=== PATIENT | female | born 1930 | race Caucasian/White ===

== ENCOUNTER 2018-02-26 10:32 | Emergency (ER) | payer OTHER ==
[~2018-02-26] VITALS: Ht 154.9 cm; Wt 63.0 kg
[~2018-02-26 10:32] MED LIST: ACYCLOVIR 400400 MG PO; ADVAIR HFA 230M12 GM INH; ALIGN4 MG PO; ANASTROZOLE1 MG PO; ASPIR 8181 M1 PO; B12INJ IM; BACTROBAN CREAM30 G1 TOP; CARVEDILOL12.5 MG PO; ECOTRIN325 MG PO; FISH OIL 1,001000 M2 PO; IBUPROFEN 200200 M1 PO; LEVOTHYROXIN0.025 MG PO; LEVOTHYROXIN0.075 MG PO; LEVOTHYROXIN0.088 MG PO; LIDOCAINE 22 %/30 GM TOP; NEXIUM40 MG PO; NORCO 5-325 TA1 EACH PO; NORVASC5 MG PO; PERCOCET 7.5-31 EACH PO; PERCOCET PO; PREDNISONE 10 M10 MG; VANCOMYCIN100 MG/M1 PO; VITAMIN B-12500 MCG PO; VITAMIN D31000 UNI2 PO
[2018-02-26 11:16] LABS: ABSOLUTE BASOPHILS 0.1 thou/uL (0.0-0.2); ABSOLUTE EOSINOPHILS 0.4 thou/uL (0.0-0.7); ABSOLUTE LYMPHOCYTES 2.6 thou/uL (0.8-5.3); ABSOLUTE MONOCYTES 1.1 thou/uL (0.0-1.2); BASOPHILS 1.1 %; EOSINOPHILS 4.7 %; HEMATOCRIT 39.1 % (37.0-47.0); HEMOGLOBIN 13.1 gm/dL (12.0-15.0); LYMPHOCYTES 31.9 %; MCH 29.6 pg (26.0-34.0); MCHC 33.5 g/dL (28.0-37.0); MCV 88.4 fL (80.0-100.0); MONOCYTES 13.5 %; MPV 8.3 fl. (7.2-11.1); NUCLEATED RBCS 0 /100WBC; PLATELET COUNT* 147 thou/uL (150-400); POLYS 48.8 %; RBC 4.43 mil/uL (4.20-5.00); RDW-CV 14.4 % (10.5-14.5); WBC 8.1 thou/uL (4.0-11.0)
[2018-02-26 11:32] LABS: ANION GAP 6 mmol/L (7-16); BUN 15 mg/dL (7-18); CALCIUM 8.9 mg/dL (8.5-10.1); CHLORIDE 105 mmol/L (98-107); CO2 28 mmol/L (21-32); CREATININE 1.1 mg/dL (0.6-1.3); GLUCOSE 115 mg/dL (70-99); POTASSIUM 4.3 mmol/L (3.5-5.1); SODIUM 139 mmol/L (136-145)
[2018-02-26 11:43] LABS: ALBUMIN 3.3 g/dL (3.4-5.0); ALKALINE PHOSPHATASE 102 U/L (46-116); NT-PRO BRAIN NAT PEPTIDE 279 pg/mL (<300); SGOT 48 U/L (15-37); SGPT 54 U/L (30-65); TOTAL BILIRUBIN 0.4 mg/dL (<0.1-1.0); TOTAL PROTEIN 7.3 g/dL (6.4-8.2); TROPONIN-I LEVEL <0.06 ng/mL (<0.06)
[2018-02-26 12:34] LABS: URINE BILIRUBIN NEGATIVE (Negative); URINE BLOOD NEGATIVE (Negative); URINE CLARITY CLEAR; URINE COLOR YELLOW; URINE GLUCOSE-RANDOM NEGATIVE (Negative); URINE KETONES NEGATIVE (Negative); URINE LEUKOCYTES-REFLEX NEGATIVE (Negative); URINE NITRITE-REFLEX NEGATIVE (Negative); URINE PROTEIN NEGATIVE (Negative); URINE SPECIFIC GRAVITY <= 1.005 (1.005-1.030); URINE UROBILINOGEN 0.2 E.U./dl (0.2-1.0)
[2018-02-26] MEDS ORDERED: PREDNISONE50 MG PO (13:37)
[2018-02-26] MEDS ORDERED: ZPAK PO (13:37)
[2018-02-26] MEDS ORDERED: VENTOLIN HFA 1818 GM INH (13:37)
[2018-02-26] MEDS ORDERED: ALBUTEROL2.5 MG/31 INH (13:37)
--- NOTE | 2018-02-26 13:56 | EKG ---
[place] [address] ELECTROCARDIOGRAM REPORT Name: QUINTON GROSS Room: [facility]#: [id number] Admission: 02/26/18 Attend Phys: Discharge: Date of : 31 Report #: [id number] THIS REPORT FOR: //name// [facility] ED Test Date: 2018-02-26 Test Time: 10:41:44 Pat Name: QUINTON GROSS Department: Room: Gender: F Supervisor Telephone Information: : 1930 Requested By: Colten Narayanan Order Number: [id number] MD: Ravi Rodriguez Measurements Intervals [place] Rate: 62 P: 5 VA: 214 QRS: 19 QRSD: 86 T: 57 QT: 432 QTc: 439 Interpretive Statements Sinus rhythm Borderline prolonged VA interval Compared to ECG 03/01/2015 20:42:27 No significant changes Electronically Signed On 02-26-2018 13:56:42 CDT by Ravi Rodriguez [email or web address] <ELECTRONICALLY SIGNED> By: Ravi Rodriguez MD, [facility] 02/26/18 1356 1041 1041 Ravi Rodriguez MD, FACC /EPI
[2018-02-26 14:00] VITALS: BP 157/61
== END 2018-02-26 14:05 | disposition home or self-care (01) ==
LOC: M.ERS 10:32
PROVIDERS: Emergency Medicine Emergency Medical Services
DX: J44.1 Chronic obstructive pulmonary disease with (acute) exacerbation (principal); I10 Essential (primary) hypertension; E03.9 Hypothyroidism, unspecified; Z88.5 Allergy status to narcotic agent; Z88.8 Allergy status to other drugs, medicaments and biological substances; Z90.49 Acquired absence of other specified parts of digestive tract; Z90.710 Acquired absence of both cervix and uterus

== ENCOUNTER 2019-08-31 12:25 | Inpatient (IN) | payer OTHER ==
[~2019-08-31] VITALS: Ht 154.9 cm; Wt 57.5 kg
[~2019-08-31 12:25] MED LIST changes: +ALBUTEROL2.5 MG/31 INH; -LEVOTHYROXIN0.088 MG PO; +PREDNISONE50 MG PO; +SYNTHROID88 MC1 PO; +VENTOLIN HFA 1818 GM INH; -VITAMIN D31000 UNI2 PO; +VITAMIN D3400 UNI2 PO; +ZPAK PO
[2019-08-31 12:52] VITALS: BP 110/54
[2019-08-31] MEDS ORDERED: ELIQUIS2.5 MG PO (12:59)
[2019-08-31 14:27] LABS: ABSOLUTE BASOPHILS 0.1 thou/uL (0.0-0.2); ABSOLUTE EOSINOPHILS 0.1 thou/uL (0.0-0.7); ABSOLUTE LYMPHOCYTES 1.7 thou/uL (0.8-5.3); ABSOLUTE MONOCYTES 0.7 thou/uL (0.0-1.2); ABSOLUTE NEUTROPHILS 5.3 thou/uL (1.6-8.1); BASOPHILS 0.7 %; EOSINOPHILS 0.9 %; HEMATOCRIT 27.8 % (37.0-47.0); HEMOGLOBIN 9.2 gm/dL (12.0-15.0); LYMPHOCYTES 21.2 %; MCH 32.9 pg (26.0-34.0); MCV 99.7 fL (80.0-100.0); MONOCYTES 8.9 %; MPV 9.3 fl. (7.2-11.1); NUCLEATED RBCS 0 /100WBC; PLATELET COUNT* 136 thou/uL (150-400); POLYS 68.3 %; RBC 2.79 mil/uL (4.20-5.00); RDW-CV 19.2 % (10.5-14.5); WBC 7.8 thou/uL (4.0-11.0)
[2019-08-31 14:31] LABS: CALCIUM 7.8 mg/dL (8.5-10.1); CREATININE 0.9 mg/dL (0.6-1.3); POTASSIUM 3.8 mmol/L (3.5-5.1)
[2019-08-31 14:42] LABS: ALBUMIN 2.5 g/dL (3.4-5.0); TOTAL BILIRUBIN 0.5 mg/dL (<0.1-1.0); TOTAL PROTEIN 5.9 g/dL (6.4-8.2)
[2019-08-31 16:27] LABS: URINE BILIRUBIN NEGATIVE (Negative); URINE BLOOD NEGATIVE (Negative); URINE CLARITY CLEAR; URINE COLOR YELLOW; URINE GLUCOSE-RANDOM NEGATIVE (Negative); URINE KETONES NEGATIVE (Negative); URINE LEUKOCYTES-REFLEX NEGATIVE (Negative); URINE NITRITE-REFLEX NEGATIVE (Negative); URINE PROTEIN NEGATIVE (Negative); URINE SPECIFIC GRAVITY 1.015 (1.005-1.030); URINE UROBILINOGEN 0.2 E.U./dl (0.2-1.0)
[2019-08-31 18:11] VITALS: BP 132/58
[2019-08-31 21:22] VITALS: BP 134/54
[2019-08-31 22:00] VITALS: BP 130/53
[2019-09-01 04:00] VITALS: BP 118/60
--- NOTE | 2019-09-01 04:13 | NUR ---
RECEIVED REPORT FROM EBEN BANKS AT 2099. PT ARRIVED TO UNIT AT 2114. AFIB ON DOUBLE BACKER THIS SHIFT. PT DENIES PAIN, VOICES NO CONCERNS THIS SHIFT. PT HOURLY ROUNDING COMPLETED. FALL PRECAUTIONS IN PLACE. Q2H REPOSITIONING COMPLETED. CALL LIGHT WITHIN REACH. STRICT I&0'S. [address]
[2019-09-01] MEDS ORDERED: DILTIAZEM ER180 MG PO (04:30)
[2019-09-01] MEDS ORDERED: KLOR-CON 10 ER10 MEQ PO (04:31)
[2019-09-01] MEDS ORDERED: FUROSEMIDE 20 M20 MG PO (04:31)
[2019-09-01] MEDS ORDERED: VENTOLIN HFA 1818 GM INH (04:32)
[2019-09-01] MEDS ORDERED: RAYOS5 MG PO (04:35)
[2019-09-01 05:55] LABS: ABSOLUTE LYMPHOCYTES 0.7 thou/uL (0.8-5.3); ABSOLUTE MONOCYTES 0.1 thou/uL (0.0-1.2); ABSOLUTE NEUTROPHILS 5.1 thou/uL (1.6-8.1); BASOPHILS 0.4 %; EOSINOPHILS 0.2 %; HEMATOCRIT 28.9 % (37.0-47.0); HEMOGLOBIN 9.6 gm/dL (12.0-15.0); LYMPHOCYTES 12.2 %; MCH 33.1 pg (26.0-34.0); MCHC 33.1 g/dL (28.0-37.0); MCV 99.9 fL (80.0-100.0); MONOCYTES 2.5 %; MPV 8.6 fl. (7.2-11.1); NUCLEATED RBCS 0 /100WBC; PLATELET COUNT* 107 thou/uL (150-400); POLYS 84.7 %; RBC 2.89 mil/uL (4.20-5.00); RDW-CV 18.7 % (10.5-14.5)
[2019-09-01 06:02] LABS: CALCIUM 8.4 mg/dL (8.5-10.1); CREATININE 1.1 mg/dL (0.6-1.3)
[2019-09-01 06:03] LABS: POTASSIUM 4.9 mmol/L (3.5-5.1)
[2019-09-01 08:20] VITALS: BP 115/47
--- NOTE | 2019-09-01 11:09 | NUR ---
VSS, ASSUMED CARE IN THE AM, ASSESSMENT PERFORMED AND CHARTED, FALL PRECAUTIONS IN PLACE AND CALL LIGHT IN REACH, PT IS A&O4 AND IS UP WITH ONE AND ON 2L NC, PT IS DENIES ANY PAIN, IS TRACING AFIB ON THE MONITOR, PT GOAL IS TO SIT UP IN CHAIR AND WALK IN ROOM, WILL FOLLOW WITH PLAN OF CARE.
[2019-09-01 12:00] VITALS: BP 101/38
[2019-09-01 16:00] VITALS: BP 112/43
[2019-09-01 20:00] VITALS: BP 118/45
[2019-09-02] VITALS (7 sets, daily range): BP systolic 110–123; BP diastolic 42–60
--- NOTE | 2019-09-02 04:08 | NUR ---
ASSUMED PT CARE AT APPROX 1930. PT IS AWAKE AND ORIENTED X4-FORGETFUL. PT IS TRACING AFIB-RATE CONTROLLED ON THE POUNCER. spO2- 88-89% ON ROOM AIR WHILE SLEEPING, PLACED PT ON 1L OF O2/NC- spO2 94%. VS OTHERWISE STABLE, NO RESPIRATORY DISTRESS NOTED. PT IS ABLE TO SLEEP MOST OF THE NIGHT. HIGH FALL PRECAUTIONS IN PLACE. CALL LIGHT WITHIN REACH. HOURLY ROUNDING DONE FOR SAFETY.
[2019-09-02 05:05] LABS: HEMATOCRIT 25.3 % (37.0-47.0); HEMOGLOBIN 8.5 gm/dL (12.0-15.0); MCHC 33.7 g/dL (28.0-37.0); MCV 98.2 fL (80.0-100.0); MPV 8.5 fl. (7.2-11.1); RBC 2.58 mil/uL (4.20-5.00); RDW-CV 17.8 % (10.5-14.5); WBC 5.6 thou/uL (4.0-11.0)
[2019-09-02 05:34] LABS: CALCIUM 7.9 mg/dL (8.5-10.1); CREATININE 1.4 mg/dL (0.6-1.3); POTASSIUM 3.7 mmol/L (3.5-5.1)
--- NOTE | 2019-09-02 10:25 | CON ---
[address] [address] CONSULTATION Name: QUINTON GROSS Room: [address] ADM IN M.R.#: [id number] Admission: 08/31/19 Attend Phys: Ilia Rasmussen Discharge: Date of : 31 Report #: [id number] THIS REPORT FOR: //name// CC: Ilia Whalen INDICATION: Atrial fibrillation with rapid ventricular response rate. HISTORY OF PRESENT ILLNESS: The patient is a very pleasant 89-year-old white female who was transferred from snf for complaints of increased dyspnea on exertion. The patient has a history of possible lung cancer per her report. She was treated recently at outside hospital for what she reports as a pneumonia. The patient does certainly have evidence of scarring and infiltrate in the right middle lobe, possibly with underlying tumor. In this setting, the patient has been noted to be in atrial fibrillation. She has been treated with a rate control plan with chronic anticoagulation. She is having no bleeding problems. She has been on a combination of diltiazem and carvedilol for rate control. She has a history of heart failure, which appears to be diastolic in nature. She does have some evidence of volume overload, although she denies orthopnea. She does have some chronic dyspnea. She denies chest pain. She is without other cardiac complaint at this time. PAST MEDICAL HISTORY: 1. Persistent atrial fibrillation. 2. Hypertension. 3. Diastolic heart failure. 4. Hypertensive heart disease. 5. Hypercoagulable state due to atrial fibrillation. 6. History of breast cancer remotely. 7. Possible lung cancer. 8. History of skin cancer on the right hand. 9. Hypothyroidism. 10. Remote appendectomy. 11. Cholecystectomy remotely. 12. Hysterectomy remotely. MEDICATIONS ON TRANSFER: Aspirin 81 mg daily, carvedilol 12.5 mg b.i.d., vitamin D3 1000 units daily, diltiazem 180 mg daily, Eliquis 2.5 mg b.i.d., furosemide 20 mg daily, potassium chloride 10 mEq daily, levothyroxine 88 mcg daily, Imodium p.r.n., omeprazole 20 mg daily, Ventolin inhaler every 4 hours p.r.n., vitamin B12 500 mcg orally daily and prednisone 10 mg daily. ALLERGIES: LEVAQUIN, LISINOPRIL, LOSARTAN, MORPHINE SULFATE, SULFA ANTIBIOTICS. SOCIAL HISTORY: The patient is a lifelong nonsmoker. [place] [address] CONSULTATION Name: QUINTON GROSS Room: [address]#: [id number] Admission: 08/31/19 Attend Phys: Iila Rasmussen Discharge: Date of : 31 Report #: [id number]. FAMILY HISTORY: Noncontributory. PHYSICAL EXAMINATION: VITAL SIGNS: Blood pressure 115/47, pulse is in the low. GENERAL: This is a very pleasant elderly female in no distress. Mood and affect appropriate. HEENT: Extraocular muscles intact. Mucous membranes are moist. NECK: Shows no jugular venous distention. There are no carotid bruits. CHEST: Reveals clear lung sears anteriorly. CARDIOVASCULAR: Reveals an irregularly irregular rhythm that is slightly tachycardic. I do not appreciate murmur or gallop. ABDOMEN: Reveals normal bowel sounds. The abdomen is soft and nontender. EXTREMITIES: Shows 1+ edema to the mid tibias bilaterally. SKIN: Dry. LABORATORY DATA: A 12-lead EKG shows atrial fibrillation with fairly controlled ventricular response rate. Labs are reviewed. Electrolytes within normal limits. BUN 19 and creatinine 1.1. Troponins are less than 0.06 on 3 separate occasions. NT-proBNP is mildly elevated at 4740. Chest x-ray shows perihilar infiltrate. There is possible atelectasis or infiltrate in the right middle lobe. IMPRESSION AND RECOMMENDATIONS: 1. Atrial fibrillation, which appears to be persistent. We will continue rate control. I am switching from amlodipine to diltiazem and continuing carvedilol at current doses. Could adjust these doses if need be for rate control. She is chronically anticoagulated with Eliquis and having no bleeding problems. 2. Hypercoagulable state due to atrial fibrillation. Continue Eliquis 2.5 mg twice daily. 3. Hypertension. Blood pressure adequately controlled on current cardiac regimen. 4. Hypertensive heart disease, presently stable. 5. Acute on chronic diastolic heart failure. We will continue with diuresis as has been started already. Agree to increasing oral dose to 40 mg daily and following. She has had an adequate diuresis with her IV Lasix boluses. 6. Possible lung cancer. Treatment per primary physician. 7. Pneumonitis, possible pneumonia. Antibiotics per primary physician. <ELECTRONICALLY SIGNED> By: Alex Day MD, FACC 09/02/19 1025 1005 1213Miclucy Day MD, FACC /nt
--- NOTE | 2019-09-02 12:00 | NUR ---
MET WITH PT AND SPOKE WITH LIO/JAYNE WHO IS DPOA. PT LIVE IN [place] APT AT THE [facility]. SHE HAS RECENTLY BEEN IN SNF AT [facility] BUT STATES WILL NOT RETURN. PT HAS NOT HAD HH. PT IS NORMALLY INDEPENDENT AND ACTIVE. WALKS TO THE DINING ROOM FOR MEALS AND CAN PREPARE A SIMPLE MEAL IN APT. SHE USES NO EQUIPMENT. PER , PLAN FOR DC WITH HH, POSSIBLY TOMORROW. DISCUSSED HH OPTIONS WITH JAYNE AND SHE CHOSE [facility]. CALLED AND FAXED INITIAL REF TO [facility] PT WILL ALSO NEED WALKER, WILL CHECK ON
--- NOTE | 2019-09-02 12:19 | EKG ---
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: : 1930 Requested By: Kori Lomeli Order Number: [id number] MD: Junior Jennings Measurements Intervals [place] Rate: 79 P: AL: QRS: 16 QRSD: 109 T: 98 QT: 369 QTc: 424 Interpretive Statements Atrial fibrillation Borderline repolarization abnormality Compared to ECG 02/26/2018 10:41:44 Sinus rhythm no longer present Electronically Signed On 09-02-2019 12:19:18 ASSOCIATE PROGRAMMER by Junior Jennings [email or web address] <ELECTRONICALLY SIGNED> By: Junior Jennings MD, [facility] 09/02/19 1219 1435 143 Junior Jennings MD, FAC /EPI
--- NOTE | 2019-09-02 13:02 | NUR ---
VSS, ASSUMED CARE IN THE AM, ASSESSMENT PERFORMED AND CHARTED, FALL PRECAUTIONS IN PLACE AND CALL LIGHT IN REACH, PT IS ON RA THIS AM, SHE IS UP WITH ONE AND WALKER, PT DENIES ANY PAIN THIS AM, PT IS TRACING AFIB ON THE MONITOR, PT HAS WALKED IN THE HALLS AND IS UP IN CHAIR, WILL FOLLOW WITH PLAN OF CARE.
--- NOTE | 2019-09-02 15:05 | 2DMMODE ---
[place] [address] 2 D/M-MODE ECHOCARDIOGRAM Name: QUINTON GROSS Room: [address] ADM IN .R.#: [id number] Admission: 08/31/19 Attend Phys: Ilia ordoñez Sa Discharge: Date of : 31 Date of Service: 09/02/19 1504 Report #: [id number] THIS REPORT FOR: //name// APPROVED REPORT Study performed: 09/02/2019 11:47:18 EXAM: Comprehensive 2D, Doppler, and color-flow Echocardiogram Patient Location: Bedside BSA: 1.54 HR: 85 bpm BP: 110/49 mmHg Other Information Study Quality: Fair Indications Atrial Fibrillation 2D Dimensions IVSd: 11.22 (7-11mm) LVOT Diam: 19.80 (18-24mm) LVDd: 29.52 mm PWd: 10.11 (7-11mm) Ascending Ao: 29.00 (22-36mm) LVDs: 23.25 (25-40mm) Aortic Root: 25.85 mm Volumes Left Atrial Volume (Systole) LA ESV Index: 26.50 mL/m2 Aortic Valve AoV Peak Andrei.: 0.78 m/s AO Peak Gr.: 2.45 mmHg LVOT Max P.43 mmHg AO Mean Gr.: 1.21 mmHg LVOT Mean P.76 mmHg LVOT Max V: 0.60 m/s AO V2 VTI: 12.94 cm LVOT Mean V: 0.40 m/s TERRENCE (VTI): 3.09 cm2 LVOT V1 VTI: 12.99 cm Mitral Valve E/A Ratio: 3.87 MV Decel. Time: 153.32 ms MV E Max Andrei.: 1.06 m/s MV PHT: 44.46 ms MVA (PHT): 4.95 [place] [address] 2 D/M-MODE ECHOCARDIOGRAM Name: QUINTON GROSS Room: [address] IN .R.#: [id number] Admission: 08/31/19 Attend Phys: Ilia ordoñez Sa Discharge: Date of : 31 Date of Service: 09/02/19 1504 Report #: [id number] TDI E/Lateral E': 9.64 E/Medial E': 17.67 Medial E' Andrei.: 0.06 m/s Lateral E' Andrei.: 0.11 m/s Pulmonary Valve PV Peak Andrei.: 0.77 m/s PV Peak Gr.: 2.35 mmHg Tricuspid Valve RAP Estimate: 5.00 mmHg TR Peak Gr.: 32.72 mmHg RVSP: 37.72 mmHg PA Pressure: 37.72 mmHg Left Ventricle The left ventricle is normal size. There is normal LV segmental wall motion. Mild concentric left ventricular hypertrophy. Left ventricular systolic function is normal. The left ventricular ejection fraction is within the normal range. LVEF is 60-65%. This study is not technically sufficient to allow evaluation of the LV diastolic function due to atrial fibrillation. Right Ventricle The right ventricle is normal size. The right ventricular systolic function is normal. Atria The left atrium size is normal. Right atrium is dilated. Aortic Valve The aortic valve is normal in structure. No aortic regurgitation is present. There is no aortic valvular stenosis. Mitral Valve The mitral valve is normal in structure. Mild mitral regurgitation. No evidence of mitral valve stenosis. Tricuspid Valve The tricuspid valve is normal in structure. Mild tricuspid regurgitation. Pulmonic Valve The pulmonary valve is normal in structure. Mild pulmonic regurgitation[place] [address] 2 D/M-MODE ECHOCARDIOGRAM Name: QUINTON GROSS Room: [address] IN [facility]#: [id number] Admission: 08/31/19 Attend Phys: Ilia ordoñez Sa Discharge: Date of : 31 Date of Service: 09/02/19 1504 Report #: [id number] The aortic root is normal in size. IVC is normal in size and collapses >50% with inspiration. Pericardium There is no pericardial effusion. <Conclusion> The left ventricle is normal size. Mild concentric left ventricular hypertrophy. Left ventricular systolic function is normal. The left ventricular ejection fraction is within the normal range. LVEF is 60-65%. This study is not technically sufficient to allow evaluation of the LV diastolic function due to atrial fibrillation. Mild mitral regurgitation. Mild tricuspid regurgitation. Mild pulmonic regurgitation. IVC is normal in size and collapses >50% with inspiration. <ELECTRONICALLY SIGNED> By: Alex Day MD, [facility] 09/02/19 1504 1504 1504 Alex Day MD, FACC /INF
[2019-09-03] VITALS (8 sets, daily range): BP systolic 108–129; BP diastolic 47–58
--- NOTE | 2019-09-03 04:59 | NUR ---
ASSUMED PT CARE AT APPROX 1930. PT IS AWAKE AND ORIENTED X4. VSS ON 1L OF O2/NC. ASSET MANAGER IN PLACE TRACING AFIB-RATE CONTROLLED. ASSESSMENT DONE AND CHARTED. PT IS ABLE TO SLEEP MOST OF THE NIGHT. CALL LIGHT WITHIN REACH. HIGH FALL PRECAUTIONS IN PLACE. HOURLY ROUNDING DONE FPR PT SAFETY.
[2019-09-03 06:08] LABS: CALCIUM 7.9 mg/dL (8.5-10.1); CREATININE 1.4 mg/dL (0.6-1.3); MAGNESIUM 1.4 mg/dL (1.8-2.4); POTASSIUM 3.4 mmol/L (3.5-5.1)
--- NOTE | 2019-09-03 07:11 | CON ---
[address] [address] CONSULTATION Name: QUINTON GROSS Room: [address] ADM IN M.R.#: [id number] Admission: 08/31/19 Attend Phys: Ilia Rasmussen Discharge: Date of : 31 Report #: [id number] THIS REPORT FOR: //name// CC: Ilia Kraft [facility] DATE OF SERVICE: 09/02/2019 INFECTIOUS DISEASE CONSULTATION ATTENDING PHYSICIAN: Ilia Kraft MD REASON FOR EVALUATION: Recommendations for antimicrobial therapy in the setting of what appears to be acute pneumonitis in the background of chronic lung disease, also perhaps some immunodeficiency. HISTORY OF PRESENT ILLNESS: Chart reviewed, the patient examined. This is an 89-year-old with known history of breast cancer, although more recently, has been diagnosed with a lung mass. Apparently, that has not been diagnosed as another primary or metastatic lesion. Had been undergoing radiation therapy and was given corticosteroids, specifically prednisone. She was apparently on a tapering dose, although there is some confusion. She was evaluated at other institution due to progressive dyspnea and weakness, the latter of which she has is her main complaint now. She was diagnosed with atrial fibrillation and congestive heart failure with a component of pneumonitis as well. She stayed several days, was treated with diuretics, antibiotics, which she describes as multiple. She was transitioned to the rehab unit, was found to have increasing fluid retention. This was eventually diuresed to some degree. She admits with weakness. At this point, she is on room air oxygen. She does have a cough that is mildly productive. It is not clear that she has had any fevers. Initial evaluation showed a normal white count and differential. Albumin of 2.5. Chest x-ray: Prominent bilateral perihilar mixed interstitial alveolar infiltrates, normal-sized heart. CT: There is question of possible mass. Urinalysis: Unremarkable. Blood cultures are sterile thus far. As a result, she was empirically started on antimicrobials with ceftriaxone, azithromycin as well as corticosteroids. She denies significant amount of pain. She is generally lucid. ALLERGIES: LISTED TO MORPHINE, CIPROFLOXACIN, WHICH CAUSES MUSCLE PAINS, METRONIDAZOLE, WHICH CAUSED HER URTICARIA, LEVAQUIN, WHICH CAUSES URTICARIA WELL. PAST MEDICAL HISTORY: Known history of COPD, left-sided breast cancer with lumpectomy in 2013, hypertension, hypothyroidism, more recent lung mass, history of shingles, radiation to the [place] [address] CONSULTATION Name: QUINTON GROSS Room: [address] IN [facility].#: [id number] Admission: 08/31/19 Attend Phys: Ilia Rasmussen Discharge: Date of : 31 Report #: [id number] SOCIAL HISTORY: Nonsmoker, no ethanol, no illicit drug use. FAMILY HISTORY: Noncontributory. REVIEW OF SYSTEMS: Otherwise, unremarkable 10-point review of systems with exception of the above. PHYSICAL EXAMINATION: GENERAL: She appears somewhat chronically ill, undernourished, pleasant, cooperative, mild respiratory distress. She is somewhat pale. VITAL SIGNS: Temperature 98.1, pulse 97, respirations 12, blood pressure 123/59. SKIN: Warm, dry. HEENT: Normocephalic. Extraocular muscles are intact. NECK: Supple. LUNGS: Few scattered coarse breath sounds, some crackles at the bases. HEART: Regular. Borderline tachycardic. She has a soft systolic murmur. ABDOMEN: Soft, nontender, nondistended. EXTREMITIES: No cyanosis. Does have some edema in particularly right distal lower extremity. GENITOURINARY AND RECTAL: Deferred. LABORATORY DATA: Echo: Has normal LV size, ejection fraction of 60-65%, mild mitral regurgitation. CT of the chest without contrast. Dense pneumonitis throughout the right lower lobe, obscuring detail, possible mass seen. Blood cultures sterile thus far. Electrolytes: Sodium 140, potassium 3.7, chloride 100, bicarb is 34, anion gap of 6, BUN and creatinine 24 and 1.4. Estimated GFR of 35. CBC: White count of 5.6, H and H 8.5 and 25.3, platelets of 105. Prealbumin of 24.8. Urinalysis unremarkable. ASSESSMENT: Pneumonitis. The patient perhaps has some degree of immunosuppression. I would think I am not favoring an opportunistic infection at this point, had been in a nursing facility, certainly at risk given the time of year and the likelihood of potentially exposure. Continue current therapy as prescribed. At this point, she is not overtly toxic. I am not hopeful to be able to collect sputum. Send off pneumococcal urinary antigen as well as legionella and do MRSA PCR. We will see how she does clinically over the next 24-48 hours. <ELECTRONICALLY SIGNED> By: Mario Alberto Min MD 09/03/19 0711 1602 [id number] Min MD /nt
--- NOTE | 2019-09-03 14:14 | NUR ---
PT DIZZY TODAY AND DC HELD, TENTATIVE DC TOMORROW. MET WITH PT, WANTS TO RETURN HOME TO HER APT AND STILL AGREEABLE TO HH. [facility]. WALKER DISPENSED BY THERAPY THRU PROVIDER PLUS [facility] WILL NEED CALLED AND ORDERS FAXED AT DC. [facility] [phone] FAX [phone]
[2019-09-04] VITALS: BP 110/50
--- NOTE | 2019-09-04 03:54 | NUR ---
RECEIVED REPORT AND ASSUMED CARE AT 1900.VSS. CARDIAC MONITORING IN PLACE. PT DENIES COMPLAINTS OF PAIN. ASSESSMENT COMPLETED CHARTED. BED LOCKED IN LOWEST POSITION, CALL LIGHT WITHIN REACH, BED ALARM ON.
[2019-09-04 04:00] VITALS: BP 118/59
[2019-09-04 08:00] VITALS: BP 128/55
[2019-09-04] MEDS ORDERED: CEFDINIR300 MG PO (09:23)
[2019-09-04 12:00] VITALS: BP 111/64
--- NOTE | 2019-09-04 12:04 | NUR ---
ASSUMED CARE OF PT AT 0730. PT RESTING AT EDGE OF BED FOR BREAKFAST. A&0X4, DENIES ANY PAIN OR SHROTNESS OF BREATH AT THIS TIME. TRACING AFIB ON THE BENDING MACHINE SET UP OPERATOR-RATE CONTROLLED IN THE 80'S-90'S. PT STATES SHE HAD ONE DIZZY SPELL THIS AM WHEN AMBULATING TO [facility]. RELIEVED WITH REST. ON RA SAT UPPER 90'S. 02 REST SAT AND EXERCISE COMPLETED AND PT DOES NOT REQUIRE OXYGEN PER RESPIRATORY THERAPY. PT UP WITH 1 ASSIST AND WALKER TO BATHROOM. PT ON 1500 ML FLUID RESTRICTION. PT GOAL FOR TODAY IS REMAIN FREE FROM DIZZINESS AND DISCHARGE PLANNING TO HOME WITH HOME HEALTH. AM ASSESSMENT CHARTED. MEDICATIONS PER OCT. PT REPOSITIONED EVERY 2 HOURS FOR COMFORT. HOURLY ROUNDING OBSERVED. BED IN LOW POSITION. CALL LIGHT WITHIN REACH. WILL CONTINUE PLAN OF CARE.
--- NOTE | 2019-09-04 15:57 | NUR ---
PT REMAINED FREE FROM DIZZINESS THIS AFTERNOON. DISCHARGE ORDERS RECEIVED. DISCHARGE INSTRUCTIONS, CARE NOTES AND FOLLOW UP APPTS GIVEN TO PT. PT COMMUNICATES UNDERSTANDING OF DISCHARGE TEACHING. IV AND PRIMARY MONTESSORI TEACHER REMOVED. PT DISCHARGED WITH ALL BELONGINGS AND PAPERWORK VIA WHEELCHAIR WITH NURSING STAFF TO FAMILY OWN PERSONAL VEHICLE TO HOME WITH HOME HEALTH. 7 DAY FOLLOW UP APPT FOR HEART FAILURE GUIDELINE FAXED TO PRIMARY CARE PHYSICIAN. [facility] CONTACTED AND SPOKE WITH DIEUDONNE AND RATNA EXECUTIVE PASTRY CHEF. HH ORDERS FAXED TO [facility].
== END 2019-09-04 15:58 | disposition home health service (06) | DRG 291 ==
LOC: M.ERS 12:25 → M.TBA-ER 15:08 → M.2W 15:08
PROVIDERS: Internal Medicine; Physician Assistant; ADMIT Family Medicine
DX: I13.0 Hypertensive heart and chronic kidney disease with heart failure and stage 1 through stage 4 chronic kidney disease, or unspecified chronic kidney disease (principal); J96.01 Acute respiratory failure with hypoxia; J18.9 Pneumonia, unspecified organism; G92 Toxic encephalopathy; I50.33 Acute on chronic diastolic (congestive) heart failure; I48.19 Other persistent atrial fibrillation; D68.59 Other primary thrombophilia; J44.0 Chronic obstructive pulmonary disease with (acute) lower respiratory infection; C34.90 Malignant neoplasm of unspecified part of unspecified bronchus or lung; I95.1 Orthostatic hypotension; R91.8 Other nonspecific abnormal finding of lung field; E03.9 Hypothyroidism, unspecified; J44.9 Chronic obstructive pulmonary disease, unspecified; N18.3 Chronic kidney disease, stage 3 (moderate); Z79.01 Long term (current) use of anticoagulants; Z85.828 Personal history of other malignant neoplasm of skin; Z85.3 Personal history of malignant neoplasm of breast; Z90.89 Acquired absence of other organs; Z90.49 Acquired absence of other specified parts of digestive tract; Z90.710 Acquired absence of both cervix and uterus; Z79.82 Long term (current) use of aspirin; Z79.899 Other long term (current) drug therapy; Z88.1 Allergy status to other antibiotic agents; Z88.5 Allergy status to narcotic agent; Z88.8 Allergy status to other drugs, medicaments and biological substances

== ENCOUNTER 2019-09-05 10:01 | Emergency (ER) | payer OTHER ==
[~2019-09-05] VITALS: Ht 154.9 cm; Wt 49.9 kg
[~2019-09-05 10:01] MED LIST changes: +CEFDINIR300 MG PO; +DILTIAZEM ER180 MG PO; +ELIQUIS2.5 MG PO; +FUROSEMIDE 20 M20 MG PO; +KLOR-CON 10 ER10 MEQ PO; +RAYOS5 MG PO
[2019-09-05 12:39] VITALS: BP 143/57
--- NOTE | 2019-09-06 09:57 | EKG ---
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: JAY : 1930 Requested By: Dash Jones Order Number: [id number] MD: Ravi Rodriguez Measurements Intervals [place] Rate: 91 P: NM: QRS: 6 QRSD: 82 T: 65 QT: 362 QTc: 446 Interpretive Statements Atrial fibrillation Ventricular premature complex RSR' in V1 or V2, probably normal variant Baseline wander in lead(s) V1 Compared to ECG 08/31/2019 14:35:36 Ventricular premature complex(es) now present RSR' in V1 or V2 now present Electronically Signed On 09-06-2019 9:57:18 WICK TENDER by Ravi Rodriguez [email or web address] <ELECTRONICALLY SIGNED> By: Ravi Rodriguez MD, [facility] 09/06/19 0957 1014 1014 Ravi Rodriguez MD, [facility] /EPI
== END 2019-09-05 12:41 | disposition home or self-care (01) ==
LOC: M.ERS 10:01
DX: R53.1 Weakness (principal); I10 Essential (primary) hypertension; E03.9 Hypothyroidism, unspecified; J44.9 Chronic obstructive pulmonary disease, unspecified; Z85.828 Personal history of other malignant neoplasm of skin; Z90.49 Acquired absence of other specified parts of digestive tract; Z86.14 Personal history of Methicillin resistant Staphylococcus aureus infection; Z90.710 Acquired absence of both cervix and uterus; Z85.3 Personal history of malignant neoplasm of breast; Z88.1 Allergy status to other antibiotic agents; Z88.5 Allergy status to narcotic agent; Z88.8 Allergy status to other drugs, medicaments and biological substances; W18.39XA Other fall on same level, initial encounter; Y92.89 Other specified places as the place of occurrence of the external cause; Y93.89 Activity, other specified; Y99.8 Other external cause status

== ENCOUNTER 2020-02-21 11:32 | Emergency (ER) | payer OTHER ==
[~2020-02-21] VITALS: Ht 152.4 cm; Wt 55.4 kg
[2020-02-21 12:33] LABS: URINE BILIRUBIN NEGATIVE (Negative); URINE BLOOD NEGATIVE (Negative); URINE CLARITY CLEAR; URINE COLOR YELLOW; URINE GLUCOSE-RANDOM NEGATIVE (Negative); URINE KETONES NEGATIVE (Negative); URINE LEUKOCYTES-REFLEX NEGATIVE (Negative); URINE NITRITE-REFLEX NEGATIVE (Negative); URINE PROTEIN NEGATIVE (Negative); URINE SPECIFIC GRAVITY 1.025 (1.005-1.030); URINE UROBILINOGEN 0.2 E.U./dl (0.2-1.0)
[2020-02-21 12:40] LABS: AMP/METHAMP Negative (Negative); BARBITURATES Negative (Negative); BENZODIAZEPINES Negative (Negative); COCAINE Negative (Negative); METHADONE Negative (Negative); OPIATES Negative (Negative); PCP Negative (Negative); THC Negative (Negative)
[2020-02-21 12:54] LABS: ABSOLUTE BASOPHILS 0.1 thou/uL (0.0-0.2); ABSOLUTE EOSINOPHILS 0.2 thou/uL (0.0-0.7); ABSOLUTE LYMPHOCYTES 1.7 thou/uL (0.8-5.3); ABSOLUTE MONOCYTES 0.7 thou/uL (0.0-1.2); ABSOLUTE NEUTROPHILS 3.4 thou/uL (1.6-8.1); BASOPHILS 1.1 %; EOSINOPHILS 3.9 %; HEMATOCRIT 36.6 % (37.0-47.0); HEMOGLOBIN 12.3 gm/dL (12.0-15.0); LYMPHOCYTES 27.5 %; MCH 29.2 pg (26.0-34.0); MCHC 33.5 g/dL (28.0-37.0); MCV 87.2 fL (80.0-100.0); MONOCYTES 12.2 %; MPV 8.6 fl. (7.2-11.1); NUCLEATED RBCS 0 /100WBC; PLATELET COUNT* 134 thou/uL (150-400); POLYS 55.3 %; RDW-CV 14.5 % (10.5-14.5); WBC 6.1 thou/uL (4.0-11.0)
[2020-02-21 13:10] LABS: CALCIUM 9.1 mg/dL (8.5-10.1); CREATININE 1.1 mg/dL (0.6-1.3); POTASSIUM 4.3 mmol/L (3.5-5.1)
[2020-02-21 13:23] LABS: ALBUMIN 3.6 g/dL (3.4-5.0); TOTAL BILIRUBIN 0.3 mg/dL (<0.1-1.0); TOTAL PROTEIN 7.9 g/dL (6.4-8.2)
[2020-02-21 15:08] VITALS: BP 172/64
--- NOTE | 2020-02-22 19:18 | EKG ---
[place] [address] ELECTROCARDIOGRAM REPORT Name: QUINTON GROSS Room: [facility]#: [id number] Admission: 02/21/20 Attend Phys: Discharge: 02/21/20 Date of : 31 Date of Service: 02/21/20 1335 Report #: [id number] THIS REPORT FOR: //name// 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: : 1930 Requested By: Kori Lomeli Order Number: [id number] MD: Alex Day Measurements Intervals [place] Rate: 68 P: 107 [place]: 242 QRS: 14 QRSD: 87 T: 36 QT: 432 QTc: 460 Interpretive Statements Sinus rhythm Prolonged [place] interval Baseline wander in lead(s) V3 Compared to ECG 09/05/2019 10:14:44 First degree AV block now present Atrial fibrillation no longer present Ventricular premature complex(es) no longer present Electronically Signed On 02-22-2020 17:38:32 CDT by Alex Day [email or web address] <ELECTRONICALLY SIGNED> By: Alex Day MD, FACC 02/22/20 1738 1335 1335 Alex Day MD, FAC /EPI
== END 2020-02-21 15:09 | disposition home or self-care (01) ==
LOC: M.ERS 11:32
PROVIDERS: Physician Assistant
DX: R53.1 Weakness (principal); R42 Dizziness and giddiness; J44.9 Chronic obstructive pulmonary disease, unspecified; I10 Essential (primary) hypertension; E03.9 Hypothyroidism, unspecified; Z88.1 Allergy status to other antibiotic agents; Z88.5 Allergy status to narcotic agent; Z79.82 Long term (current) use of aspirin; Z79.899 Other long term (current) drug therapy; Z90.49 Acquired absence of other specified parts of digestive tract; Z90.710 Acquired absence of both cervix and uterus